=== PATIENT | male | born 1955 | race African-American/Black ===

== ENCOUNTER 2021-10-25 11:45 | Inpatient (IN) | payer MEDICARE, MEDICAID ==
[~2021-10-25] VITALS: Ht 182.9 cm; Wt 141.5 kg
[2021-10-25] MEDS ORDERED: ENALAPRIL 2.5MG/2ML VIAL 2ML IV ONE (12:15)
[2021-10-25] MEDS ORDERED: MORPHINE SULFATE 4 MG/ML CPJ (NOT FOR IM USE) IV ONE (12:15)
[2021-10-25] MEDS ORDERED: FUROSEMIDE 40MG/4ML VIAL IVP ONE (12:15)
[2021-10-25 12:21] LABS: BG BASE EXCESS 0.6 mmol/L (-2.0-2.0); BG CARBOXYHEMOGLOBIN 0.3 % (0.5-1.5); BG DEOXYHEMOGLOBIN 0.5 % (0.0-5.0); BG FRACTION INSPIRED OXYGEN 100; BG HCO3 ACT 25.3 mmol/L (22.0-26.0); BG METHEMOGLOBIN 0.3 % (0.0-1.5); BG OXYGEN SATURATION 99.5 % (92.0-98.5); BG OXYHEMOGLOBIN 98.9 % (94.0-97.0); BG PCO2 40.7 mmHg (35.0-45.0); BG PH 7.411 (7.350-7.450); BG PO2 360.4 mmHg (75.0-100.0); BG SAMPLE SITE LEFT RADIAL; BG TOTAL HEMOGLOBIN 11.5 g/dL (12.0-18.0); BG VENT MODE MASK - BIPAP
[2021-10-25 12:24] LABS: BASOPHILS % 0.6 % (0.0-2.0); EOSINOPHILS % 1.7 % (0.0-5.0); HEMATOCRIT. 35.9 % (42.0-52.0); HEMOGLOBIN. 11.1 g/dL (14.0-18.0); LYMPHOCYTES % 12.9 % (20.0-50.0); MEAN CORPUSCULAR HEMOGLOBIN 29.8 pg (28.0-32.0); MEAN CORPUSCULAR VOLUME 96.1 fL (80.0-94.0); MEAN PLATELET VOLUME 9.9 fl (7.4-10.4); MONOCYTES % 8.8 % (2.0-8.0); PLATELET 194 x1000/uL (130-400); RED BLOOD CELL COUNT 3.74 mill/uL (4.7-6.1); RED CELL DISTRIBUTION WIDTH 15.3 % (11.6-14.6)
[2021-10-25] MEDS ORDERED: ENALAPRIL 1.25MG/ML VIAL 1ML IV NR (12:30)
[2021-10-25] MEDS ORDERED: FUROSEMIDE 40MG/4ML VIAL IVP NR (12:30)
[2021-10-25] MEDS ORDERED: MORPHINE SULFATE 4 MG/ML CPJ (NOT FOR IM USE) IV NR (12:30)
[2021-10-25 12:33] LABS: CHLORIDE 105 mEq/L (98-107)
[2021-10-25] MEDS ORDERED: IPRATROPIUM/ALBUTEROL 0.5-3(2.5)MG/3ML NEB HHN PRN (15:45)
[2021-10-25 15:53] VITALS: BP 172/96
[2021-10-25 16:28] VITALS: BP 166/88
[2021-10-25] MEDS ORDERED: NALOXONE HCL 0.4MG/ML VIAL IV PRN (16:45)
[2021-10-25] MEDS: HYDROCODONE/ACETAMINOPHEN 10/325MG TABLET PO PRN (16:52)
[2021-10-25] MEDS: LOSARTAN POTASSIUM 100 MG TABLET PO SCH (16:52)
[2021-10-25] MEDS ORDERED: PNEUMOCOCCAL 23-VAL P-SAC VAC 0.5 ML IM ONE (18:00)
[2021-10-25 18:28] VITALS: BP 150/50
[2021-10-25 20:18] VITALS: BP 143/74
[2021-10-25] MEDS ORDERED: CLONIDINE 0.1MG TABLET PO PRN (21:30)
[2021-10-25 22:28] VITALS: BP 126/88
[2021-10-25] MEDS: RIVAROXABAN 20 MG TABLET PO SCH (22:32)
[2021-10-25] MEDS: GABAPENTIN 300MG CAPSULE PO SCH (22:32)
[2021-10-25] MEDS: PHENYTOIN SODIUM EXTENDED 100MG CAPSULE PO SCH (22:34)
[2021-10-25] MEDS: ALLOPURINOL 300 MG TABLET PO SCH (22:34)
[2021-10-26] VITALS (13 sets, daily range): BP systolic 120–159; BP diastolic 59–95
[2021-10-26] MEDS: HYDROCODONE/ACETAMINOPHEN 10/325MG TABLET PO PRN ×3 (01:32→18:14)
[2021-10-26] MEDS: GABAPENTIN 300MG CAPSULE PO SCH (08:33)
[2021-10-26] MEDS: ALLOPURINOL 300 MG TABLET PO SCH (08:33)
[2021-10-26] MEDS: LOSARTAN POTASSIUM 100 MG TABLET PO SCH (08:34)
[2021-10-26] MEDS ORDERED: FUROSEMIDE 40MG/4ML VIAL IVP SCH (09:00)
[2021-10-26] MEDS ORDERED: METOLAZONE 2.5MG TABLET PO NR (10:15)
[2021-10-26] MEDS: FUROSEMIDE 100MG/10ML VIAL IVP SCH (12:08)
[2021-10-26] MEDS ORDERED: FUROSEMIDE 100MG/10ML VIAL IVP SCH (17:15)
[2021-10-26] MEDS: RIVAROXABAN 20 MG TABLET PO SCH (18:01)
[2021-10-26] MEDS: AMLODIPINE 5MG TABLET PO SCH (20:41)
[2021-10-26] MEDS: PHENYTOIN SODIUM EXTENDED 100MG CAPSULE PO SCH (20:41)
[2021-10-27] VITALS (14 sets, daily range): BP systolic 75–160; BP diastolic 51–97
[2021-10-27 06:16] LABS: CHLORIDE 97 mEq/L (98-107)
[2021-10-27 06:51] LABS: HEMATOCRIT 36.1 % (42.0-52.0); HEMOGLOBIN 11.5 g/dL (14.0-18.0); MEAN CORPUSCULAR HEMOGLOBIN 29.2 pg (28.0-32.0); MEAN CORPUSCULAR VOLUME 91.4 fL (80.0-94.0); PLATELET 208 x1000/uL (130-400); RED BLOOD CELL COUNT 3.95 mill/uL (4.7-6.1); RED CELL DISTRIBUTION WIDTH 14.6 % (11.6-14.6)
[2021-10-27] MEDS: HYDROCODONE/ACETAMINOPHEN 10/325MG TABLET PO PRN (07:29)
[2021-10-27] MEDS ORDERED: NITROGLYCERIN 0.4MG TABLET SL SL PRN (07:30)
[2021-10-27] MEDS: LOSARTAN POTASSIUM 100 MG TABLET PO SCH (08:59)
[2021-10-27] MEDS: AMLODIPINE 5MG TABLET PO SCH ×2 (08:59→20:40)
[2021-10-27] MEDS: GABAPENTIN 300MG CAPSULE PO SCH (08:59)
[2021-10-27] MEDS: ALLOPURINOL 300 MG TABLET PO SCH (08:59)
[2021-10-27] MEDS: FUROSEMIDE 100MG/10ML VIAL IVP SCH (08:59)
[2021-10-27] MEDS: RIVAROXABAN 20 MG TABLET PO SCH (18:15)
[2021-10-27] MEDS: PHENYTOIN SODIUM EXTENDED 100MG CAPSULE PO SCH (20:48)
[2021-10-28] VITALS: BP 124/76
[2021-10-28 02:00] VITALS: BP 139/42
[2021-10-28 04:00] VITALS: BP 139/83
[2021-10-28 06:00] VITALS: BP 126/59
[2021-10-28 06:09] VITALS: BP 126/59
[2021-10-28 08:00] VITALS: BP 104/57
[2021-10-28] MEDS: ALLOPURINOL 300 MG TABLET PO SCH (08:31)
[2021-10-28] MEDS: GABAPENTIN 300MG CAPSULE PO SCH (08:31)
[2021-10-28] MEDS: FUROSEMIDE 100MG/10ML VIAL IVP SCH (08:31)
[2021-10-28] MEDS: AMLODIPINE 5MG TABLET PO SCH (08:32)
[2021-10-28] MEDS: LOSARTAN POTASSIUM 100 MG TABLET PO SCH (08:32)
== END 2021-10-28 10:24 | disposition home or self-care (01) | DRG 291 ==
LOC: ER 11:59 → 5EST 12:57 → EDBEDREQ 13:00 → EDBEDREQTM 13:00 → ENRESERV 13:50
PROVIDERS: ADMIT Internal Medicine; ATTEND Internal Medicine
PROC: 5A09357 Assistance with Respiratory Ventilation, Less than 24 Consecutive Hours, Continuous Positive Airway Pressure (ICD-10-PCS; principal; 2021-10-25)
DX: I11.0 Hypertensive heart disease with heart failure (principal); I50.43 Acute on chronic combined systolic (congestive) and diastolic (congestive) heart failure; J96.01 Acute respiratory failure with hypoxia; Z68.41 Body mass index [BMI] 40.0-44.9, adult; Z20.822 Contact with and (suspected) exposure to COVID-19; I25.10 Atherosclerotic heart disease of native coronary artery without angina pectoris; E66.01 Morbid (severe) obesity due to excess calories; D64.9 Anemia, unspecified; E78.5 Hyperlipidemia, unspecified; R74.01 Elevation of levels of liver transaminase levels; G89.29 Other chronic pain; I25.2 Old myocardial infarction
CPT/HCPCS: 36415; 36600; 71045; 80053; 82375; 82805; 83880; 84484; 85025; 85027; 85379; 87426; 87804; 90732; 93005; 93306; 93970; 94660; 99291; C9803; J1940; J2270; J3490

== ENCOUNTER 2024-10-18 08:08 | Emergency (ER) | payer MEDICARE, MEDICAID ==
[~2024-10-18] VITALS: Ht 180.3 cm; Wt 100.0 kg
[2024-10-18 08:08] VITALS: TEMP 36.2
[~2024-10-18 08:08] MED LIST: ALBU6.7H15 INH; ALLO300T2 PO; CEPH250C2 PO; FLUT16SP15; GABA-290 PO; HYDR-4001 PO; LOSA50TA41 PO; RIVA20TA PO
[2024-10-18 08:23] VITALS: BP 0/0; PULSE 0; RESP 0; O2SAT 0
[2024-10-18] MEDS ORDERED: ESMOLOL HCL 10MG/ML 10ML VIAL IV SCH (08:30)
[2024-10-18] MEDS ORDERED: ESMOLOL 2500MG PREMIX 250 ML IV PRN (08:30)
[2024-10-18] MEDS ORDERED: CALCIUM CHLORIDE 1GM/10ML SYR IV ONE (09:51)
[2024-10-18] MEDS ORDERED: MAGNESIUM SULFATE 4G IN WATER 100ML PREMIX IV ONE (09:51)
[2024-10-18] MEDS ORDERED: EPINEPHRINE 0.1MG/ML (1:10,000) 10ML SYR ONE (09:51)
== END 2024-10-18 10:47 ==
LOC: ER 08:37
DX: I46.9 Cardiac arrest, cause unspecified (principal); Z79.899 Other long term (current) drug therapy; Z98.890 Other specified postprocedural states; Z79.01 Long term (current) use of anticoagulants
CPT/HCPCS: 99291; 92950; 31500; 82962; J3490 ×3; J3475